=== PATIENT | female | born 1970 | race Caucasian/White ===

== ENCOUNTER 2021-02-15 21:21 | Emergency (ER) | payer OTHER ==
[~2021-02-15] VITALS: Ht 162.6 cm; Wt 90.7 kg
[2021-02-15] MEDS ORDERED: ONDANSETRON 4 MG/2 ML (SDV) Z0FRAN IVP ONE ×2 (21:45→22:45)
[2021-02-15] MEDS ORDERED: fentaNYL INJ 100 MCG/2 ML AMP IVP ONE (21:45)
[2021-02-15] MEDS ORDERED: morphine INJ 10 MG/ML 1ML (SYR OR VIAL) IVP STA (22:42)
[2021-02-15] MEDS ORDERED: ETOMIDATE IV SOLN 20 MG/10 ML VIAL IV ONE (22:45)
[2021-02-15] MEDS ORDERED: RX-OXYCODONE/APAP 5-325 MG #4 TAB PK PO PRN (23:45)
[2021-02-15] MEDS ORDERED: TETANUS,DIPTH,PERTUSS P/F (BOOSTRIX) 0.5 ML VIAL IM ONE (23:45)
[2021-02-15] MEDS ORDERED: RX-ONDANSETRON 4 MG ODT (ZOFRAN) PPK #4 PO STA (23:57)
--- NOTE | 2021-02-15 23:57 | ED Upper Extremity ---
General Chief Complaint: Conscious Sedation Stated Complaint: FALL - L WRIST / ARM PAIN Nursing Triage Note: TO ED VIA POV AND AMBULATORY TO ROOM 3. PT HOLDING LEFT ARM WITH VISUAL DEFORMITY AND ABRASIONS NOTED. ABRASION TO LEFT KNEE ALSO NOTED. PT STATES SHE WAS OUTSIDE WALKING ON SIDEWALK AND THE NEXT THING SHE KNEW SHE WAS ON GROUND HAVING FALLEN FORWARD MOSTLY TO LEFT SIDE. 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 C/O LEFT HAND STARTING TO FEEL NUMB. DENIES HITTING HEAD OR LOC. Nursing Sepsis Screen: No Definite Risk Source: patient Exam Limitations: no limitations History of Present Illness Date Seen by Provider: Feb 15, 2021 Time Seen by Provider: 21:38 Initial Comments This 50-year-old woman presents to the emergency room with injuries related to tripping and falling on the sidewalk at her home. She denies any prodrome. She denies any head or neck injury or loss of consciousness. She has significant pain and disfigurement of the left wrist. She has abrasions on her left wrist and left knee. Allergies and Home Medications Allergies Coded Allergies: No Known Drug Allergies (Unverified , 02/15/21) Home Medications Ondansetron 4 Mg Tab.rapdis, 4 MG PO Q4H PRN for NAUSEA/VOMITING Prescribed by: KRISTA DANIEL on 02/16/21 0000 Oxycodone HCl/Acetaminophen 1 Each Tablet, 1 TAB PO Q4H PRN for PAIN-MODERATE (5-7) Prescribed by: KRISTA DANIEL on 02/16/21 0001 Patient Home Medication List Home Medication List Reviewed: Yes Review of Systems Constitutional: no symptoms reported EENTM: no symptoms reported Respiratory: no symptoms reported Cardiovascular: no symptoms reported Gastrointestinal: no symptoms reported Genitourinary: no symptoms reported : No Musculoskeletal: see HPI Skin: see HPI Psychiatric/Neurological: No Symptoms Reported Past Ulfctmt-Qwxizg-Ckweyw Hx Past Med/Social Hx: Reviewed Nursing Past Med/Soc Hx Patient Social History Alcohol Use: Denies Use Smoking Status: Never a Smoker Recent Infectious Disease Expo: No Immunizations Up To Date Tetanus Booster (TDap): Unknown Past Medical History Surgeries: Yes Gallbladder Respiratory: No Cardiac: No Neurological: No Reproductive Disorders: No Genitourinary: No Gastrointestinal: No Musculoskeletal: No Endocrine: No HEENT: No Cancer: No Psychosocial: No Integumentary: No Blood Disorders: No Physical Exam Vital Signs Vital Signs - First Documented 02/15/21 23:35 O2 Flow Rate 3.00 Capillary Refill : Less Than 3 Seconds Height, Weight, BMI Height: '" Weight: lbs. oz. kg; 34.00 BMI Method: General Appearance: WD/WN, mild distress HEENT: normal ENT inspection Neck: normal inspection Cardiovascular: regular rate, rhythm, no edema, no murmur Respiratory: lungs clear, normal breath sounds, no respiratory distress Shoulder: normal inspection, non-tender, no evidence of injury, normal ROM Elbow/Forearm: normal inspection, non-tender, no evidence of injury, normal ROM, Left Wrist: Yes bone tenderness, Yes deformity, Yes ecchymosis, Yes limited ROM, Yes pain, Yes swelling Hand: Left (Capillary refill in the fingers are brisk and sensation intact.), bone tenderness (Around the proximal fifth metacarpal), limited ROM Neurologic/Tendon: normal sensation, normal motor functions, normal tendon functions Neurologic/Psychiatric: chip separator II-XII nml as tested, no motor/sensory deficits, alert, normal mood/affect, oriented x 3 Skin: normal color, warm/dry Procedures/Interventions Procedure: Conscious sedation for closed reduction of wrist fracture Patient Education: Explained Benefits, Explained Risks, Pt. Ack. Understanding Agreement on procedure with pt: Yes Breath Sounds per Auscultation: Clear, Crackles Heart Sounds per Auscultation: Regular Sedation Adminstration Time: 23:18 Total Time spent in CS 10 min 23:28 Splinting and Joint Reduction : Pre-Proc Neuro Vasc Exam: normal Post-Proc Neuro Vasc Exam: normal Progress Under conscious sedation with morphine and etomidate a sugar tong splint was applied to the left forearm after reduction. Abrasions were cleaned and dressed with antibiotic ointment and Telfa dressing before splint was applied. Patient tolerated the procedure well. Rocky wrap: Yes Arm Sling: [place] Hand-Made Type: fiberglass (Sugar tong) Progress/Results/Core Measures Results/Orders My Orders Orders - KRISTA SYKES MD Wrist, Left, 3 Views Or More (02/15/21 21:42) Hand, Left, 3 Views (02/15/21 21:42) Fentanyl Inj (Sublimaze Injection) (02/15/21 21:45) Ondansetron Injection (Zofran Injectio (02/15/21 21:45) Morphine Injection (Morphine Injection (02/15/21 22:42) Etomidate Injection (Amidate Injection) (02/15/21 22:45) Ondansetron Injection (Zofran Injectio (02/15/21 22:45) Wrist, Left, 2 Views (02/15/21 ) Rx-Oxycodone/Apap 5-325 Mg (Rx-Percocet (02/15/21 23:45) Dipht,Pertuss(Acell),Tet Adult (Boostrix (02/15/21 23:45) Rx-Ondansetron Po (Rx-Zofran Po) (02/15/21 23:57) Lactated Ringers (Lr 1000 Ml Iv Solution (02/16/21 00:52) Medications Given in ED Current Medications Medications Dose Ordered Sig/Yoni Route Start Time Stop Time Status Last Admin Dose Admin Diphtheria/ Tetanus/Acell Pertussis 0.5 ml ONCE ONCE IM 02/15/21 23:45 02/15/21 23:47 DC 02/16/21 00:21 0.5 ML Etomidate 10 mg ONCE ONCE IV 02/15/21 22:45 02/15/21 22:46 DC 02/15/21 23:17 10 MG Fentanyl Citrate 75 mcg ONCE ONCE IVP 02/15/21 21:45 02/15/21 21:46 DC 02/15/21 21:48 75 MCG Lactated Ringer's 1,000 ml @ STK-MED ONCE IV 02/16/21 00:52 02/16/21 00:56 DC 02/16/21 00:58 999 MLS/HR Ondansetron HCl 4 mg ONCE ONCE IVP 02/15/21 21:45 02/15/21 21:46 DC 02/15/21 21:49 4 MG Ondansetron HCl 8 mg ONCE ONCE IVP 02/15/21 22:45 02/15/21 22:46 DC 02/15/21 23:04 8 MG Oxycodone/ Acetaminophen 1 ea Q4H PRN PO 02/15/21 23:45 02/16/21 01:28 DC 02/16/21 00:21 1 EA Vital Signs/I&O 6/02/15/21 02/15/21 02/16/21 21:34 21:34 23:35 01:25 Temp 37.2 37.2 37.0 37.2 Pulse 75 75 84 Resp 16 16 17 B/P (MAP) 144/89 (107) 144/89 (107) 114/67 (107) Pulse Ox 98 98 94 O2 Delivery Room Air Room Air Nasal Cannula Room Air O2 Flow Rate 3.00 Blood Pressure Mean: 107 Progress Progress Note : Progress Note Patient's pain was initially treated with fentanyl and later morphine. Sugar tong splint was applied after reduction of the radial fracture under conscious sedation. Dr. Perez was consulted and would like her to present in the outpatient setting. Patient struggled with nausea and heaving post procedure. IV fluids and Phenergan were added to the Zofran she already received. Diagnostic Imaging Diagonstic Imaging: Xray Plain Films/CT/US/NM/MRI: hand (And wrist) Comments X-rays of the left hand and wrist were reviewed by me. Reports not yet available. There is a ventrally displaced fracture of the distal radius and a displaced fracture of the ulnar styloid bone. Images were reviewed with Dr. Perez who recommended reduction and splinting with prompt follow-up in the clinic. I discussed options with the patient. She elected to perform the reduction with sedation. Under conscious sedation with etomidate and morphine the radial fracture was reduced and splinted. Patient experienced significant nausea and heaving after awaking from sedation even after receiving 2 doses of Zofran. A liter of LR and Phenergan 12.5 mg was ordered. Patient improved with this treatment and was able to go home. Take-home packets of Percocet and Zofran were dispensed to the patient. Diagonstic Imaging: Xray Plain Films/CT/US/NM/MRI: other (Left wrist) Comments Postreduction x-ray showed good improvement in positioning of the radial fracture fragment. Departure Impression Primary Impression: Radius fracture Qualified Codes: S52.592A - Other fractures of lower end of left radius, initial encounter for closed fracture Additional Impressions: Fracture of ulnar styloid Qualified Codes: S52.612A - Displaced fracture of left ulna styloid process, initial encounter for closed fracture Fall on same level from tripping Disposition: HOME, SELF-CARE Condition: Improved Departure-Patient Inst. Decision time for Depature: 23:40 Referrals: NO,LOCAL PHYSICIAN (PCP) Primary Care Physician PUNEET PEREZ MD Patient Instructions: Forearm and Wrist Fractures ED, Moderate Sedation in Adults (DC), Moderate Sedation in Children (DC) Add. Discharge Instructions: Keep your arm in the splint and sling. Use Percocet as prescribed for pain. You may ice your wrist in 20-minute intervals. Keep the splint dry when icing. Contact Dr. Perez or the orthopedist of your choice in the morning to arrange follow-up. You may wish to take an ulvu-eng-fafwcoh stool softener such as Colace while on Percocet to prevent constipation. Use Zofran if needed to control nausea with your pain medication. Scripts Ondansetron (Ondansetron Odt) 4 Mg Tab.rapdis 4 MG PO Q4H PRN for NAUSEA/VOMITING, #20 TAB Prov: KRISTA SYKES MD 02/16/21 Oxycodone HCl/Acetaminophen (Percocet 5-325 mg Tablet) 1 Each Tablet 1 TAB PO Q4H PRN for PAIN-MODERATE (5-7) MDD 6 TABS, #20 TAB Prov: KRISTA SYKES MD 02/16/21 Copy Copies To 1: PUNEET PEREZ MD, JOSHUA T MD Feb 15, 2021 23:57
[2021-02-16] MEDS ORDERED: ONDA4TAB11 PO
[2021-02-16] MEDS ORDERED: OXYC1TAB87 PO
[2021-02-16] MEDS ORDERED: LACTATED RINGERS 1,000 ML IV ONE (00:52)
[2021-02-16 01:25] VITALS: BP 114/67
--- NOTE | 2021-02-16 06:01 | Diagnostic Imaging Report ---
EXAMINATION: Left wrist at 1135 PM INDICATION: Postreduction AP and off lateral views were obtained. The exam performed earlier today at 9:57 PM noted a complex comminuted displaced fracture of the distal radius as well as an avulsion fracture of the ulnar styloid. There is also volar displacement of the main distal radial fracture fragment. In the interval since the prior exam partial reduction of the dislocation has occurred. The main fracture fragments do seem to be in better alignment but the distal fracture fragment still seems to be displaced volarly by approximately 1 cm. The fracture of the ulnar styloid is again evident and no different. No new bony abnormality has developed. There is a fiberglass cast in place. IMPRESSION: The alignment of the fracture fragments of the distal radius has improved since the prior exam but the main distal fracture fragment remains displaced volarly by approximately 1 cm. Dictated by: Dictated on workstation # [id number]
--- NOTE | 2021-02-16 08:43 | Diagnostic Imaging Report ---
Indication: Hand pain. COMPARISON: Left wrist radiographs performed concurrently. TECHNIQUE: 3 views left hand. FINDINGS: Comminuted and displaced distal radial fractures better detailed on the wrist radiograph report. Moderate degenerative changes are present at the thumb CMC and STT. No fracture within the hand. No osseous erosions. IMPRESSION: 1. No acute fracture within the hand. 2. Please see wrist report for details of the comminuted and displaced distal radial fracture and ulnar styloid fracture. Dictated by: Dictated on workstation # [id number]
--- NOTE | 2021-02-16 08:43 | Diagnostic Imaging Report ---
INDICATION: Left wrist pain. TIME OF EXAM: 9:57 PM. TECHNIQUE: Three views of the left wrist were obtained. FINDINGS: There is a comminuted impacted fracture of the distal radius with intra-articular extension. The dominant fracture fragment appears to be displaced volar. There is also a fracture through the ulnar styloid. The carpal bones are intact. There are triscaphe and 1st MC joint degenerative changes. IMPRESSION: Impacted and displaced distal radius fracture with intra-articular extension. There is also an ulnar styloid fracture. Dictated by: Dictated on workstation # [id number]
== END 2021-02-16 01:25 | disposition home or self-care (01) ==
LOC: EDUNIT# 21:21 → ER 21:23
DX: S52.592A Other fractures of lower end of left radius, initial encounter for closed fracture (principal); S52.612A Displaced fracture of left ulna styloid process, initial encounter for closed fracture; W01.0XXA Fall on same level from slipping, tripping and stumbling without subsequent striking against object, initial encounter; Y92.009 Unspecified place in unspecified non-institutional (private) residence as the place of occurrence of the external cause
CPT/HCPCS: 25605; 73100; 73110; 73130; 90715; 93041